=== PATIENT | female | born 1975 | race Caucasian/White ===

== ENCOUNTER 2016-12-30 16:05 | Emergency (ER) | payer SELFPAY ==
[~2016-12-30 16:05] MED LIST: AMLO10TA4; METO50TA2; POTA20TA12 PO
[2016-12-30] MEDS ORDERED: MUPIROCIN 2 % TOPICAL CREAM 15GM TUBE. TP STA (17:10)
[2016-12-30] MEDS ORDERED: cloNIDine HCL 0.1 MG TABLET PO ONE (17:15)
[2016-12-30] MEDS ORDERED: HYDROcodone/APAP 5/325MG 1 TAB TABLET PO ONE (17:15)
[2016-12-30 18:10] VITALS: BP 198/110
[2016-12-30] MEDS ORDERED: CEPH500T PO (18:17)
--- NOTE | 2016-12-30 18:17 | PHYS DOC ---
Past Medical History Past Medical History: Diabetes-Type II, Hypertension Additional Past Medical Histor: SVT; Ovarian CA Past Surgical History: Cancer Surgery, Cholecystectomy Additional Past Surgical Histo: TERRY faciotomy; Left elbow repair. Alcohol Use: Rarely Drug Use: None Adult General Chief Complaint Chief Complaint: BREAST PROBLEM HPI HPI Patient is a 41 year old female with history of diabetes type 2 and uncontrolled hypertension who presents today with a nonhealing wound to the left breast for the last 2 months. Patient states she follows up with her PCP. She states she has been given clindamycin as well as doxycycline which she just finished 2 weeks ago. She states she has an appointment with her doctor January 24. Patient presents today stating her pain is so severe that she got nauseated and vomited 4 times. Patient is well known to this ED for drug seeking behavior. Review of Systems Review of Systems Constitutional: Denies fever or chills [] Eyes: Denies change in visual acuity, redness, or eye pain [] HENT: Denies nasal congestion or sore throat [] Respiratory: Denies cough or shortness of breath [] Cardiovascular: No additional information not addressed in HPI [] GI: Denies abdominal pain, nausea, vomiting, bloody stools or diarrhea [] : Denies dysuria or hematuria [] Musculoskeletal: Denies back pain or joint pain [] Integument: None healing wound to the left breast Neurologic: Denies headache, focal weakness or sensory changes [] All other systems were reviewed and found to be within normal limits, except as documented in this note. Current Medications Current Medications Current Medications Medications (Trade) Dose Ordered Sig/Austen Start Time Stop Time Status Last Admin Dose Admin Acetaminophen/ Hydrocodone Bitart (Lortab 5/325) 2 tab 1X ONCE 12/30/16 17:15 12/30/16 17:16 DC 12/30/16 17:28 2 TAB Clonidine HCl (Catapres) 0.2 mg 1X ONCE 12/30/16 17:15 12/30/16 17:16 DC 12/30/16 17:29 0.2 MG Mupirocin (Bactroban) 1 darnell 1X STAT 12/30/16 17:10 12/30/16 17:15 DC 12/30/16 17:45 1 DARNELL Allergies Allergies Allergies Coded Allergies Type Severity Reaction Last Updated Verified melon Allergy Severe THROAT SWELLS 03/31/15 Yes INÉS Inhibitors Allergy Intermediate 03/31/15 Yes NSAIDS (Non-Steroidal Anti-Inflamma Allergy Intermediate 03/31/15 Yes levofloxacin Allergy Intermediate 03/31/15 Yes nitroglycerin Allergy Intermediate 03/31/15 Yes prochlorperazine edisylate Allergy Intermediate 03/31/15 Yes prochlorperazine maleate Allergy Intermediate 03/31/15 Yes Physical Exam Physical Exam Constitutional: Well developed, well nourished, no acute distress, non-toxic appearance. [] HENT: Normocephalic, atraumatic, bilateral external ears normal, oropharynx moist, no oral exudates, nose normal. [] Eyes: PERRLA, EOMI, conjunctiva normal, no discharge. [] Neck: Normal range of motion, no tenderness, supple, no stridor. [] Cardiovascular:Heart rate regular rhythm, no murmur [] Lungs & Thorax: Bilateral breath sounds clear to auscultation [] Abdomen: Bowel sounds normal, soft, no tenderness, no masses, no pulsatile masses. [] Skin: Warm, dry, pendulous breast, left breast at 12:30 position with a non- draining area of cellulitis approximately 2 x 2 centimeters. There is no nipple involvement, does not regularly involvement. No fluctuance to the area. Extremities: No tenderness, no cyanosis, no clubbing, ROM intact, no edema. [] Neurologic: Alert and oriented X 3, normal motor function, normal sensory function, no focal deficits noted. [] Psychologic: Affect normal, judgement normal, mood normal. [] Current Patient Data Vital Signs Vital Signs Date Time Temp Pulse Resp B/P (MAP) Pulse Ox O2 Delivery O2 Flow Rate FiO2 12/30/16 17:29 90 226/110 12/30/16 17:10 98.6 18 97 Room Air 98.6 EKG EKG [] Radiology/Procedures Radiology/Procedures [] Course & Med Decision Making Course & Med Decision Making Pertinent Labs and Imaging studies reviewed. (See chart for details) Patient has cellulitis of the left breast. She states she's had the wound to the area for the last 2 months and has been following up with her doctor and finished doxycycline two weeks ago. She is in the ED stating she's had extreme pain that she vomited times. She is well known to this ED for drug seeking behavior. Her blood pressure is usually high. She was 226/126 on arrival to the ED. Compliance is always been questionable on her BP management. We gave her clonidine 0.2 mg blood pressure came down to 22/110. Tetanus up-to-date. I put on cephalexin and gave her Bactroban cream in the ED. Requested she follows up with her doctor for BP and chronic wound. She is afebrile. I also gave her general surgeon for following up with. Dylan Disclaimer Dylan Disclaimer This electronic medical record was generated, in whole or in part, using a voice recognition dictation system. Departure Departure Impression: Primary Impression: Cellulitis of left breast Additional Impression: Hypertension, accelerated Disposition: HOME, SELF-CARE Condition: STABLE Referrals: NO PCP (PCP) Follow up with your own doctor next week. KARAN BRAY MD You can follow up with the provided general surgeon this week Patient Instructions: Skin Infections Additional Instructions: You were seen for a none healing wound on her left breast. We recommend you continue following up with your own primary care doctor as well as the general surgeon provided. Use the provided cream to the area as prescribed twice a day to the breast. We put you cephalexin. Ensure you complete it. Your blood pressure is high. Follow-up with your primary care doctor in the course of this week. Scripts Cephalexin (CEPHALEXIN) 500 Mg Tablet 1 TAB PO QID, #40 TAB Prov: CHRISTINA CHAUHAN APRN 12/30/16 Problem Qualifiers CHRISTINA CHAUHAN APRN Dec 30, 2016 18:17
== END 2016-12-30 18:22 | disposition home or self-care (01) ==
LOC: ER 16:05
DX: S21.002A Unspecified open wound of left breast, initial encounter (principal); R11.2 Nausea with vomiting, unspecified; I10 Essential (primary) hypertension; E11.9 Type 2 diabetes mellitus without complications; Z90.49 Acquired absence of other specified parts of digestive tract; Z88.6 Allergy status to analgesic agent; Z88.1 Allergy status to other antibiotic agents; Z88.8 Allergy status to other drugs, medicaments and biological substances; Z91.018 Allergy to other foods; X58.XXXA Exposure to other specified factors, initial encounter; Y93.89 Activity, other specified; Y99.8 Other external cause status; Y92.89 Other specified places as the place of occurrence of the external cause
CPT/HCPCS: 99284